=== PATIENT | female | born 1960 | race Caucasian/White ===

== ENCOUNTER → 2016-07-04 | Outpatient (CLI) | payer OTHER ==
[~2016-07-04] MED LIST: CHOL100010 PO; CITA20TA9 PO; CLX20 PO; LEVO137T3 PO; LIOT5TAB9 PO; MEDLIST; MULT-513 PO; OXYC1TAB3 PO; TRET0.1C42 TOP; [UNRECOGNIZED DRUG - OTHER] PO
--- NOTE | 2016-07-04 15:56 | DIAGNOSTIC IMAGING REPORT ---
RIGHT FOOT 3 VIEWS HISTORY: RT FOOT PAIN Right COMPARISON: None. FINDINGS: There is no fracture or dislocation. Soft tissues are unremarkable. Tiny plantar heel spur. Moderate to severe osteoarthritis at the first MTP joint. There is subchondral sclerosis and subchondral cystic change at the first MTP joint. IMPRESSION: No fractures. Moderate to severe osteoarthritis at the first MTP joint. Electronically signed by: Carl Cat M.D. 07/04/2016 3:55 PM Dictated Date/Time: 07/04/2016 3:47 PM
== END | disposition home or self-care (01) ==
LOC: C.RAD 15:23
DX: M19.071 Primary osteoarthritis, right ankle and foot (principal)

== ENCOUNTER 2016-10-06 13:33 | Emergency (ER) | payer OTHER ==
[~2016-10-06] VITALS: Ht 175.3 cm; Wt 75.9 kg
[~2016-10-06 13:33] MED LIST changes: -CHOL100010 PO; -CITA20TA9 PO; -LEVO137T3 PO; -LIOT5TAB9 PO; -OXYC1TAB3 PO; -TRET0.1C42 TOP; -[UNRECOGNIZED DRUG - OTHER] PO
[2016-10-06 13:44] VITALS: TEMP 37.4; Ht 175.3 cm; Wt 75.9 kg
[2016-10-06] MEDS ORDERED: OXYCODONE HCL IR 5 MG TAB (IMMEDIATE RELEASE) PO STA (13:54)
[2016-10-06] MEDS ORDERED: LIOT5TAB9 PO (14:07)
[2016-10-06] MEDS ORDERED: TRET0.1C42 TOP (14:07)
[2016-10-06] MEDS ORDERED: [UNRECOGNIZED DRUG - OTHER] PO (14:07)
[2016-10-06] MEDS ORDERED: LEVO137T3 PO (14:07)
[2016-10-06] MEDS ORDERED: CHOL100010 PO (14:07)
[2016-10-06] MEDS ORDERED: CITA20TA9 PO (14:08)
--- NOTE | 2016-10-06 14:27 | DIAGNOSTIC IMAGING REPORT ---
LEFT HUMERUS MIN 2 VIEWS ROUTINE CLINICAL HISTORY: fall/left upper arm pain trauma COMPARISON: None. DISCUSSION: Comminuted slightly impacted fracture left humeral head and neck. No evidence of dislocation. Grade 1 separation left acromioclavicular joint. No evidence of dislocation. There is no evidence for soft tissue swelling. IMPRESSION: Slightly impacted comminuted fracture left humeral head and neck. No evidence for dislocation. Grade 1 separation left acromioclavicular joint The above report was generated using voice recognition software. It may contain grammatical, syntax or spelling errors. Electronically signed by: Shoaib Lam M.D. 10/06/2016 2:26 PM Dictated Date/Time: 10/06/2016 2:25 PM
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
[2016-10-06] MEDS ORDERED: OXYC1TAB3 PO (15:31)
[2016-10-06 15:37] VITALS: BP 145/98; PULSE 64; O2SAT 97
== END 2016-10-06 15:35 | disposition home or self-care (01) ==
LOC: C.EDB 13:36 → C.EDD 15:35
DX: S42.292A Other displaced fracture of upper end of left humerus, initial encounter for closed fracture (principal); V19.88XA Pedal cyclist (driver) (passenger) injured in other specified transport accidents, initial encounter; Y93.55 Activity, bike riding; E89.0 Postprocedural hypothyroidism; Z79.899 Other long term (current) drug therapy

== ENCOUNTER → 2016-10-10 | Outpatient (CLI) | payer OTHER ==
[~2016-10-10] MED LIST changes: +CHOL100010 PO; +CITA20TA9 PO; -CLX20 PO; +LEVO137T3 PO; +LIOT5TAB9 PO; -MEDLIST; -MULT-513 PO; +OXYC1TAB3 PO; +TRET0.1C42 TOP; +[UNRECOGNIZED DRUG - OTHER] PO
--- NOTE | 2016-10-10 08:58 | DIAGNOSTIC IMAGING REPORT ---
CT SCAN OF THE LEFT UPPER EXTREMITY WITHOUT IV CONTRAST CLINICAL HISTORY: Humeral fracture. COMPARISON STUDY: Left humeral radiographs dated 10/06/2016. TECHNIQUE: CT scan of the left upper extremity was performed from the shoulder to the mid humeral shaft. Images are reviewed in the axial, sagittal, and coronal planes. IV contrast was not administered for this examination. 3-D reformats are created and assessed. A dose lowering technique was utilized adhering to the principles of ALARA. CT DOSE: 460.04 mGy.cm FINDINGS: The skeletal structures are osteopenic. There is a comminuted and impacted fracture of the humeral neck which extends laterally through the humeral head. There are numerous small distracted fragments as well as apex volar angulation. No additional fracture is identified. The humeral head remains in anatomic alignment at the glenohumeral articulation. The sternoclavicular joint is maintained noting mild degenerative change. There is hemorrhage identified around the fracture fragments. A small amount of hemorrhage is also seen in the left axillary region. No large/organized hematoma is identified. No subcutaneous gas is seen. The shoulder musculature is normal in bulk. No axillary lymphadenopathy is identified. Partially imaged left lung parenchyma appears clear. IMPRESSION: There is an impacted and comminuted fracture of the left humeral head and neck as above. Dictated: 10/10/2016 8:16 AM Transcribed: 10/10/2016 8:57 AM [place] Electronically signed by: Thuan Walker M.D. 10/10/2016 9:03 AM Dictated Date/Time: 10/10/2016 8:16 AM
== END | disposition home or self-care (01) ==
LOC: C.CTS 07:38
DX: S42.202B Unspecified fracture of upper end of left humerus, initial encounter for open fracture (principal); X58.XXXA Exposure to other specified factors, initial encounter

== ENCOUNTER → 2016-12-20 | Outpatient (CLI) | payer OTHER | END | disposition home or self-care (01) | LOC: C.PAPS 09:32 | PROVIDERS: ATTEND Obstetrics & Gynecology | DX: Z12.4 Encounter for screening for malignant neoplasm of cervix (principal) ==

== ENCOUNTER → 2017-01-09 | Outpatient (CLI) | payer OTHER ==
--- NOTE | 2017-01-10 07:43 | MAMMOGRAPHY REPORT ---
BILATERAL DIGITAL SCREENING MAMMOGRAM TOMOSYNTHESIS WITH CAD: 01/09/2017 CLINICAL HISTORY: Routine screening. Patient has no complaints. TECHNIQUE: Breast tomosynthesis in addition to standard 2D mammography was performed. Current study was also evaluated with a Computer Aided Detection (CAD) system. COMPARISON: Comparison is made to exams dated: 11/15/2015 mammogram, 11/10/2014 mammogram, 11/04/2013 ma mmogram, 10/29/2012 mammogram, 09/22/2011 mammogram, and 09/05/2010 mammogram - [facility] ter. BREAST COMPOSITION: The tissue of both breasts is heterogeneously dense, which may obscure small mas ses. FINDINGS: The left MLO view is suboptimal due to inability of the patient to adequately position for the exam given her history of a humeral fracture. Within this limitation, there are scattered benign rim calcifications in the left breast. No suspicious suspicious mass, architectural distortion or c luster of microcalcifications is seen. IMPRESSION: ACR BI-RADS CATEGORY 1: NEGATIVE There is no mammographic evidence of malignancy. A 1 year screening mammogram is recommended. The pa tient will receive written notification of the results. Approximately 10% of breast cancers are not detected with mammography. A negative mammographic report should not delay biopsy if a clinically suggestive mass is present. Micaela Pitts M.D. ay/:01/09/2017 20:12:14 Field Research Associate: Marguerite HOLM)([place]), [facility] letter sent: Normal 1/2 BI-RADS Code: ACR BI-RADS Category 1: Negative
== END | disposition home or self-care (01) ==
LOC: C.MAMM 14:46
PROVIDERS: ATTEND Obstetrics & Gynecology
DX: Z12.31 Encounter for screening mammogram for malignant neoplasm of breast (principal)

== ENCOUNTER → 2017-05-03 | Outpatient (CLI) | payer OTHER ==
[~2017-05-03] MED LIST changes: -OXYC1TAB3 PO
== END | disposition home or self-care (01) ==
LOC: C.MAMM 12:35
DX: M85.851 Other specified disorders of bone density and structure, right thigh (principal); M85.852 Other specified disorders of bone density and structure, left thigh